=== PATIENT | female | born 1960 | race Two or more races ===

== ENCOUNTER 2020-01-16 01:27 | Emergency (ER) | payer OTHER ==
[~2020-01-16] VITALS: Ht 154.9 cm; Wt 63.0 kg
[2020-01-16] MEDS ORDERED: CRESTOR10 MG (01:37)
[2020-01-16] MEDS ORDERED: KETO10TA2 PO (10:32)
[2020-01-16] MEDS ORDERED: LEVSIN/SL0.125 MG SL (10:32)
[2020-01-16] MEDS ORDERED: ULTRAM50 MG PO (10:32)
[2020-01-16] MEDS ORDERED: PEPCID AC20 MG PO (10:32)
== END 2020-01-16 11:03 | disposition home or self-care (01) ==
LOC: ER 01:27
DX: K80.20 Calculus of gallbladder without cholecystitis without obstruction (principal); R10.13 Epigastric pain

== ENCOUNTER 2020-11-26 06:45 | Day surgery (SDC) | payer OTHER ==
[~2020-11-26 06:45] MED LIST: CRESTOR10 MG; KETO10TA2 PO; LEVSIN/SL0.125 MG SL; PEPCID AC20 MG PO; ULTRAM50 MG PO
== END 2020-11-26 10:50 | disposition home or self-care (01) ==
LOC: AMB-ENDOS 06:45
PROVIDERS: ATTEND Surgery
DX: D12.0 Benign neoplasm of cecum (principal); Z20.822 Contact with and (suspected) exposure to COVID-19

== ENCOUNTER 2022-02-03 22:52 | Inpatient (IN) | payer OTHER ==
[~2022-02-03] VITALS: Ht 154.9 cm; Wt 59.0 kg
== END 2022-02-05 15:54 | disposition home or self-care (01) | DRG 419 ==
LOC: ER 22:52 → SURG 02-04 12:09
PROVIDERS: Specialist; ADMIT Internal Medicine; ATTEND Internal Medicine
PROC: BW21ZZZ Computerized Tomography (CT Scan) of Abdomen and Pelvis (ICD-10-PCS; 2022-02-04)
PROC: BW40ZZZ Ultrasonography of Abdomen (ICD-10-PCS; 2022-02-04)
PROC: 0FT44ZZ Resection of Gallbladder, Percutaneous Endoscopic Approach (ICD-10-PCS; principal; 2022-02-04 16:00)
DX: K80.00 Calculus of gallbladder with acute cholecystitis without obstruction (principal); K82.A1 Gangrene of gallbladder in cholecystitis; Z20.822 Contact with and (suspected) exposure to COVID-19